=== PATIENT | male | born 1970 | race African-American/Black ===

== ENCOUNTER 2025-03-19 22:37 | Emergency (ER) | payer OTHER ==
[~2025-03-19] VITALS: Ht 182.9 cm; Wt 117.0 kg
[2025-03-19 22:39] VITALS: O2SAT 98
[2025-03-19 23:36] VITALS: BP 137/86; PULSE 91; RESP 16; TEMP 36.8; O2SAT 97
[2025-03-19 23:50] LABS: BASOPHILS % 1.1 % (0.0-2.0); EOSINOPHILS % 4.5 % (0.0-5.0); HEMATOCRIT. 41.6 % (42.0-52.0); HEMOGLOBIN. 13.9 g/dL (14.0-18.0); LYMPHOCYTES % 37.8 % (20.0-50.0); MEAN PLATELET VOLUME 8.1 fl (7.4-10.4); MONOCYTES % 10.1 % (2.0-8.0); NEUTROPHILS % 46.5 % (40.0-76.0); PLATELET 150 x1000/uL (130-400); RED BLOOD CELL COUNT 4.46 mill/uL (4.7-6.1); RED CELL DISTRIBUTION WIDTH 13.0 % (11.6-14.6)
[2025-03-20 00:05] LABS: CREATININE 1.3 mg/dL (0.6-1.3); UREA NITROGEN BLOOD 11 mg/dL (9-23)
== END 2025-03-20 02:08 | disposition left against medical advice (07) ==
LOC: ER 22:37
DX: H57.10 Ocular pain, unspecified eye (principal)
CPT/HCPCS: 36415; 80048; 83605; 85025; 99283